=== PATIENT | female | born 1975 ===

== ENCOUNTER 2024-09-25 14:44 | Outpatient (AMB) | payer OTHER, SELFPAY ==
--- NOTE | 2024-09-25 14:58 | AM.OFFWIN_ITS ---
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 - She is here from the [facility] and does not have a PCP. She has been out of her medications and needs refills. - She is assigned to a primary care prov Donna botello, with an initial appointment moved up to November 20. - The patient requires refills for three specific medications in addition to Motrin, with fulfillment requested at the [facility] in [facility]. - She denies CP, SOB, abd pain, n/v/d, H A, visual changes, or leg edema. Physical Exam General: Cooperative, healthy appearing, comfortable, no acute distress and well developed Orientation: Patient oriented x3 Eyes: Appearance normal, both eyes and all related structures Neck: Normal visual inspection and Yes full ROM Respiratory: Normal respiratory effort and able to speak in complete sentences. Clear to auscultation bilaterally Cardiovascular: Regular rate and rhythm. Normal S1 and S2 Neuro: Patient oriented x3 Extremities: Normal to inspection Patient was informed and verbally consented to the use of an ambient scribe for clinic note documentation during this visit. [facility] Social History Patient Tobacco Use Status: Never used Tobacco Review of Systems Const All systems reviewed & are unremarkable except as noted in HPI and below Physical Exam Vital Signs: Last Vital Signs Temp 97.8 F 09/25/24 14:59 Pulse 83 09/25/24 14:59 BP 120/74 09/25/24 14:59 Pulse Ox 97 09/25/24 14:59 Oxygen Delivery Method Room Air 09/25/24 14:59 BMI result Body Mass Index 34.2 Assessment & Plan Assessment & Plan (1) Diabetes: Code(s): E11.9 - Type 2 diabetes mellitus without complications Qualifiers: Diabetes mellitus type: type 2 Diabetes mellitus nursing home insulin use: without nursing home use Diabetes mellitus complication status: without complication Qualified Code(s): E11.9 - Type 2 diabetes mellitus without complications (2) HTN (hypertension): Code(s): I10 - Essential (primary) hypertension Qualifiers: Hypertension type: primary hypertension Qualified Code(s): I10 - Essential (primary) hypertension (3) Medication refill: Code(s): Z76.0 - Encounter for issue of repeat prescription Plan Most likely med refills for her chronic medical conditions Plan - Refill medications at the [facility] on [facility] in [place]. - One medication is unfamiliar from , will give her Metformin 500 mg and losartan-HCTZ - Schedule and ensure attendance for the November 20 follow-up with the assigned primary care provider - Will order labs today - Has f/u in November Orders: Orders Complete Blood Count Auto Diff Today E11.9 - Type 2 diabetes mellitus without complications Comprehensive Met. Panel Today E11.9 - Type 2 diabetes mellitus without complications Hemoglobin A1c Today E11.9 - Type 2 diabetes mellitus without complications Medications: New losartan-hydrochlorothiazide 100-25 mg 1 tab PO QAM 90 days 90 tabs 0RF blood pressure metformin 1,000 mg PO ONCE 90 days 90 tabs 0RF diabetes mellitus type 2 Coding Level of Care Code Est Pt Level 4 (38201) Diagnoses Type 2 diabetes mellitus without complication, without long-term current use of insulin E11.9 Diabetes mellitus type: type 2 Diabetes mellitus nursing home insulin use: without adjunct faculty for medical terminology use Diabetes mellitus complication status: without complication Primary hypertension I10 Hypertension type: primary hypertension Medication refill Z76.0
[2024-09-25 14:59] VITALS: BP 120/74; PULSE 83; TEMP 36.6; O2SAT 97; BMI 34.2
== END 2024-09-25 15:47 | disposition home or self-care (01) ==
PROVIDERS: Visit Provider Physician Assistant Medical
DX: E11.9 Type 2 diabetes mellitus without complications (principal); I10 Essential (primary) hypertension; Z76.0 Encounter for issue of repeat prescription

== ENCOUNTER → 2024-09-25 14:44 | Outpatient (BNVA) | payer OTHER, SELFPAY | PROVIDERS: Visit Provider Physician Assistant Medical | DX: E11.9 Type 2 diabetes mellitus without complications (principal); I10 Essential (primary) hypertension; Z76.0 Encounter for issue of repeat prescription; Z79.899 Other long term (current) drug therapy | CPT/HCPCS: 99212 ==

== ENCOUNTER 2024-09-26 15:11 | Outpatient (REF) | payer OTHER, SELFPAY ==
[2024-09-26 16:06] LABS: MANUAL DIFF FLAG NO
[2024-09-26 16:18] LABS: Basophils Absolute Auto 0.1 X10*3/uL (0.0-0.2); Basophils Percent Auto 0.6 % (0-2); Eosinophils Absolute Auto 0.1 X10*3/uL (0.0-0.4); Eosinophils Percent Auto 1.4 % (0-4); Hematocrit 36.5 % (37.0-47.0); Hemoglobin 12.2 g/dl (12.0-16.0); Imm Gran Abs Auto 0.02 X10*3/uL (0.00-0.03); Imm Gran Pct Auto 0.2 % (0.0-0.4); Lymphocytes Absolute Auto 3.1 X10*3/uL (1.2-4.9); Lymphocytes Percent Auto 36.8 % (20-40); Mean Corpuscular HGB Conc 33.4 g/dl (31.0-35.0); Mean Corpuscular Hemoglobin 27.4 pg (27.0-33.0); Mean Platelet Volume 10.5 fL (9.4-12.3); Monocytes Absolute Auto 0.5 X10*3/uL (0.1-1.2); Monocytes Percent Auto 5.8 % (2-11); Neutrophils Absolute Auto 4.6 x10*3/uL (2.0-8.3); Neutrophils Percent Auto 55.2 % (45-73); Platelet Count 281 X10*3/uL (160-400); Red Blood Count 4.45 X10*6/uL (4.20-5.50); Red Cell Distribution Width 13.8 % (11.0-16.0); White Blood Count 8.4 X10*3/uL (4.8-10.8)
[2024-09-26 16:26] LABS: Estimated Average Glucose 183 mg/dL; Total Hemoglobin (HGBA1C) 3249.0355 umol/L
[2024-09-26 16:51] LABS: Alanine Aminotransferase 20 U/L (0-31); Albumin Level 4.5 g/dL (3.5-5.0); Alkaline Phosphatase 56 U/L (39-117); Anion Gap 12 (12-20); Aspartate Amino Transferase 19 U/L (5-31); Bilirubin Total 0.2 mg/dL (0.0-1.0); Blood Urea Nitrogen 14 mg/dL (9-16); Calcium 9.5 mg/dL (8.4-10.2); Carbon Dioxide 28 mmol/L (22-29); Chloride 101 mmol/L (96-108); Estimated Glomerular Filt Rate > 60; Glucose Random 168 mg/dL (60-115); Potassium 3.8 mmol/L (3.3-5.1); Sodium 137 mmol/L (135-145); Total Protein 7.1 g/dL (6.5-8.0)
== END 2024-09-26 15:12 | disposition home or self-care (01) ==
LOC: HO.HMGCLDS 15:11
PROVIDERS: Visit Provider Physician Assistant Medical
DX: E11.9 Type 2 diabetes mellitus without complications (principal)
CPT/HCPCS: 36415; 80053; 83036; 85025

== ENCOUNTER 2024-11-20 16:03 | Outpatient (AMB) | payer OTHER, SELFPAY ==
--- NOTE | 2024-11-20 16:06 | A.OFFPC_ITS ---
Vital Signs 11/20/24 16:07 Height 5 ft 5 in Weight 205 lb 6 oz BMI 34.2 BP 140/74 H Blood Pressure Location Lt brachial Position Sitting Pulse 78 Temp Source Temporal Artery Scan Pulse Oximetry (%) 97 Oxygen Delivery Method Room Air Intake Visit Reasons: establish care Terminologist Required: No Accompanied by: Daughter Allergies No Known Allergies Allergy (Verified 11/20/24 16:19) Medication List - Last Reconciled 11/20/24 by Donna Lira PA-C losartan-hydrochlorothiazide 100-25 mg 1 tab PO QAM 90 days metformin 1,000 mg PO ONCE 90 days phentermine 37.5 mg PO DAILY Tobacco use date assessed: 11/20/24 Dental Screening Dental Screen Date: 11/20/24 Did you have a dental visit in the last 12 months?: No Did you have a dental problem in the last 6 months where you did not have access to dental care?: No Was dental information given to patient?: No HPI establish care HPI Details 49-year-old female with past medical his tory of diabetes mellitus and hypertension coming to the office for the 1st time. She has previously being seen in [place] where she was on losartan-hydrochlorothiazide and metformin. She is also started on phentermine for weight loss at that time. Patient's history provided interpretation for the duration of this visit. Formal interpretation was declined today Presenting with hypertension and diabetes mellitus management. Hypertension previously drinking [place] typically has normal values at home. Diabetes mellitus managed with metformin 1000 mg twice daily however A1c is at 8.0%. Reports leg swelling and circulation is use without previous prior vascular surgeries however she was on a medication called Flomacor while in the [facility]. Accompanying the chronic leg swelling she does also reports symptoms of neuropathy. She also mentioned upper back pain that has been present for several years and worsens with prolonged standing and is relieved by lying down. Denies any radiation of the pain. She does also mentioned having chest discomfort previously in [facility] and that has resolved since moving to the [facility]. She does exercise routinely and denies any chest pain with exertion. [facility] Surgical History (Updated 11/20/24 @ 16:28 by Donna Lira PA-C) H/O: hemorrhoidectomy H/O section Social History Patient Tobacco Use Status: Never used Tobacco Female Reproductive History Menstrual History of abnormal pap smear: Yes History of abnormal mammogram: Yes Questionnaire PHQ-9 Over the last 2 weeks, how often have you been bothered by any of the following problems? 1. Little interest or pleasure in doing things: not at all 2. Feeling down, depressed, or hopeless: not at all 3. Trouble falling or staying asleep, or sleeping too much: more than half the days 4. Feeling tired or having little energy: not at all 5. Poor appetite or overeating: not at all 6. Feeling bad about yourself - or that you are a failure or have let yourself or your family down: not at all 7. Trouble concentrating on things, such as reading the newspaper or watching television: not at all 8. Moving or speaking so slowly that other people could have noticed. Or the opposite - being so fidgety or restless that you have been moving around a lot more than usual: not at all 9. Thoughts that you would be better off or of hurting yourself in some way: not at all Total score: 2 Depression Screening Interpretation: Negative Depression Screening Done: Yes 47579 - PHQ-9 Billing: Yes Source: Developed by Drs. Nir Coon, Cinthia Goodman, Thuan Bello and colleagues, with an educational laure from [employer]. Thrive Questionnaire Date Thrive assessed: 11/20/24 I am a: Patient What is your living situation today?: I have a steady place to live Within the past 12 months, did the food you bought not last and you didn't have the money to get more?: Never true Within the past 12 months, did you worry whether your food would run out before you got money to buy more?: Never true Do you have trouble paying for medicines?: No Do you have trouble getting transportation to medical appointments?: No Do you have trouble paying your heating and electricity bill?: No Do you have trouble taking care of your child, family member or friend?: No Do you have trouble with day-to-day activities such as bathing, preparing meals, shopping, managing finances, etc.?: No Are you currently unemployed and looking for a job?: No Are you interested in more education?: Yes Please select the resources that you would like help with: None Currently or been in a relationship where the following occur: No concerns reported THRIVE Score: 0 AUDIT C Alcohol Use Questionnaire (AUDIT-C) 1. How often do you have a drink containing alcohol?: Never Total Score: 0 DINESH-7 AMB Questionnaire DINESH-7 Date DINESH - 7 assessed: 11/20/24 Feeling nervous, anxious, or on edge: 1 = Several days Not being able to stop or control worryin = Several days Worrying too much about different things: 1 = Several days Trouble relaxin = Several days Being so restless that it is hard to sit still: 1 = Several days Becoming easily annoyed or irritable: 0 = Not at all Feeling afraid as if something awful might happen: 1 = Several days Total DINESH-7 score (0-4 normal; 5-9 mild; 10-14 moderate; 15-21 severe): 6 Source: Developed by Drs. Nir Coon, Cinthia Goodman, Thuan Bello and colleagues, with an educational laure from [employer]. DINESH-7 Assessment Billing DINESH-7 Assessment Tool: DINESH-7 Assessment 71790 Review of Systems Const Denies body aches, Denies chills, Denies fever(s), Denies headache(s) and Denies poor appetite Eyes Reports no additional complaints ENT Denies dysphagia, Denies dizziness, Denies headache(s) and Denies odynophagia Card Details: One episode of chest discomfort 3 days ago Denies chest pain, Denies syncope, Denies edema, Denies irregular heart rhythm, Denies lightheadedness and Denies dyspnea Resp Denies cough and Denies dyspnea GI Denies abdominal pain, Denies constipation, Denies dysphagia, Denies diarrhea, Denies nausea, Denies odynophagia and Denies vomiting Reports no additional complaints Musc Reports no additional complaints and Denies abnormal gait Skin/Breast Reports system reviewed and no additional complaints, except as documented Neuro Denies abnormal gait, Denies dizziness, Denies syncope and Denies headache(s) Psych Reports no additional complaints Physical exam (Primary Care) Vital Signs: Last Vital Signs Pulse 78 11/20/24 16:07 BP 140/74 H 11/20/24 16:07 Pulse Ox 97 11/20/24 16:07 Oxygen Delivery Method Room Air 11/20/24 16:07 BMI result Body Mass Index 34.2 Tobacco/Smoking Status: Tobacco use Status Tobacco use date assessed 11/20/24 11/20/24 16:08 Patient Tobacco Use Status Never used Tobacco 11/20/24 16:08 PHQ-9: PHQ-9 Score PHQ-9: Total score 2 11/21/24 07:51 Depression Screening Interpretation: Negative Thrive Assessment: Date of Thrive Assessment Date Thrive assessed 11/20/24 11/20/24 16:08 Currently or been in a relationship where the following occur: No concerns reported Const General: cooperative, healthy appearing, comfortable and no acute distress Orientation/consciousness: patient oriented x3 HENMT Head: Yes normocephalic Ears: hearing grossly normal bilaterally General nose exam: Normal external nose present Eyes General: appearance normal, both eyes and all related structures Conjunctivae: conjunctivae normal Neck Neck: Yes full ROM and Yes no lymphadenopathy Resp Effort & Inspection: normal respiratory effort Auscultation: clear to auscultation bilaterally, no crackles, no rales, no rhonchi and no wheezes Cardio Rate: regular rate Rhythm: regular rhythm Skin General skin exam: no rashes or lesions noted Neuro General: patient oriented x3 Gait exam (Neuro): Normal gait present Extrem Other: Little to no edema in bilateral lower extremities. No redness, warmth, swelling or tenderness. Intact strength, sensation, pulses in bilateral lower extremities General: Yes normal to inspection, Yes full ROM and No edema Psych Affect: normal affect Attitude: cooperative Insight: Good insight present (Psych) Judgement: Good judgement present (Psych) Coding Level of Care Code New Pt Level 4 (77229) Diagnoses Obesity (BMI 30.0-34.9) E66.811 Primary hypertension I10 Hypertension type: primary hypertension Diabetes mellitus E11.9 Anxiety F41.9 Peripheral vascular disease I73.9 Upper back pain M54.9 Chest discomfort R07.89 Additional Codes DINESH-7 Assessment Billing - DINESH-7 Assessment Tool: DINESH-7 Assessment 08721 ([id number]) PHQ-9 - 42071 - PHQ-9 Billing: Yes ([id number]) Assessment & Plan Assessment & Plan (1) Obesity (BMI 30.0-34.9): Code(s): E66.811 - Obesity, class 1 Category: Medical Plan: Healthy diet and regular exercise is encouraged. Plan to start on Mounjaro for management of diabetes with should also help with weight loss (2) Hypertension: Code(s): I10 - Essential (primary) hypertension Category: Medical Qualifiers: Hypertension type: primary hypertension Qualified Code(s): I10 - Essential (primary) hypertension Plan: Continue on current blood pressure medication. Avoid salt intake and encourage healthy diet and regular exercise. Blood pressure mildly elevated in the office today 140/74. Recommend monitoring blood pressure at home with log and bring this in the next visit. If blood pressure should exceed 140/90 please reach out to the office prior to next visit (3) Diabetes mellitus: Code(s): E11.9 - Type 2 diabetes mellitus without complications Category: Medical Plan: Decrease the amount of carbohydrates such as pasta, bread, rice, and potatoes and limit the amount of sweets. Although fruits are generally healthy they should be eaten in moderation as they are still high in sugar. Hemoglobin A1c goal of less than 7%. Last A1c 8.0% plan to continue on metformin 1000 mg twice daily and add Mounjaro to medication regimen. She has poor compliance to oral medications and typically forgets to take her doses. Given this information once weekly dosing should promote medication adherence (4) Anxiety: Code(s): F41.9 - Anxiety disorder, unspecified Category: Medical Plan: Patient has mild anxiety and declines counseling or treatment at this time (5) Peripheral vascular disease: Comment: Dx in Code(s): I73.9 - Peripheral vascular disease, unspecified Category: Medical Plan: Diagnosed with peripheral vascular disease in the [place] and previously on Flormacor for this concern. Referral was placed to vascular surgery today. On exam there is little to no swelling however she states typically will have worsening swelling throughout the day (6) Upper back pain: Code(s): M54.9 - Dorsalgia, unspecified Category: Medical Plan: Mild upper back pain recommend weight loss, Tylenol and ibuprofen. Referral can be placed to physical therapy at patient request. (7) Chest discomfort: Code(s): R07.89 - Other chest pain Category: Medical Plan: Patient reporting chest discomfort while in the [place] several years ago that resolved with weight loss. She did have 1 episode of chest discomfort 3 days ago that resolved spontaneously. Denies any shortness of breath at that time and she believes it to be muscular. Advised patient to continue to monitor symptoms at this time and I did review of the red flag symptoms and when to present for re-evaluation. EKG ordered as well. Plan The management plan for diabetes involves initiating Mounjaro at the lowest dose, with the possibility of discontinuing metformin if effective. Home blood pressure monitoring is advised, with a threshold of 140/90 mmHg for reporting. A vascular surgeon referral is planned to evaluate peripheral vascular disease, and a mammogram referral is included for preventative care. This note was constructed using voice recognition software. While every effort has been made to ensure accuracy and mixer operator helper hot metal, still areas may have been included sometimes these areas may affect the content or meeting of the given sy mptoms. Total time spent caring for the patient today was 45 minutes. This includes time spent before the visit reviewing the chart, time spent during the visit, and time spent after the visit and documentation. Patient was informed and verbally consented to the use of an ambient scribe for clinic note documentation during this visit. Orders: Orders MM tomosynthesis screening BI 11/20/24 Z12.31 - Encounter for screening mammogram for malignant neoplasm of breast Lipid Panel 11/20/24 E11.9 - Type 2 diabetes mellitus without complications, Z13.220 - Encounter for screening for lipoid disorders TSH reflex Free T4 11/20/24 Z13.29 - Encounter for screening for other suspected endocrine disorder Free T4 (Free Thyroxine) 11/20/24 Z13.29 - Encounter for screening for other suspected endocrine disorder Vitamin B12 and Folate 11/20/24 Z13.21 - Encounter for screening for nutritional disorder Vitamin D 25-OH Total 11/20/24 Z13.21 - Encounter for screening for nutritional disorder Microalbumin, Random (w Creat) 11/20/24 E11.9 - Type 2 diabetes mellitus without complications ECG 12 lead EKG 11/20/24 R07.89 - Other chest pain Referrals MARKETING INFORMATION ANALYST Referral R87.629 - Unspecified abnormal cytological findings in specimens from vagina, Z12.4 - Encounter for screening for malignant neoplasm of cervix Vascular Surgery Referral I73.9 - Peripheral vascular disease, unspecified Medications: New blood pressure test kit-large As directed; to check blood pressure 1 ea 0RF I10 - Essential (primary) hypertension lancets (FreeStyle Lancets) As directed to check blood sugar daily 100 ea 0RF E11.9 - Type 2 diabetes mellitus without complications tirzepatide (Mounjaro) for 4 weeks 2.5 mg (0.5 mL) subcut QWEEK 2 mL 0RF E11.9 - Type 2 diabetes mellitus without complications, E66.811 - Obesity, class 1 blood sugar diagnostic (FreeStyle Lite Strips) As directed to check blood sugar daily 50 ea 1RF E11.9 - Type 2 diabetes mellitus without complications blood-glucose meter (FreeStyle Ava Lite kit) As directed to check blood sugar daily 1 ea 0RF E11.9 - Type 2 diabetes mellitus without complications Changed From metformin 1,000 mg PO ONCE 90 days 90 tabs 1RF diabetes mellitus type 2 To metformin 1,000 mg PO BID 180 tabs 1RF diabetes mellitus type 2 90 days Refilled metformin 1,000 mg PO ONCE 90 days 90 tabs 1RF diabetes mellitus type 2 losartan-hydrochlorothiazide 100-25 mg 1 tab PO QAM 90 tabs 1RF blood pressure 90 days
[2024-11-20 16:07] VITALS: BP 140/74; PULSE 78; O2SAT 97; BMI 34.2
== END 2024-11-20 16:58 | disposition home or self-care (01) ==
DX: E11.42 Type 2 diabetes mellitus with diabetic polyneuropathy (principal); E66.811 Obesity, class 1; Z68.34 Body mass index [BMI] 34.0-34.9, adult; I10 Essential (primary) hypertension; F41.9 Anxiety disorder, unspecified; I73.9 Peripheral vascular disease, unspecified; M54.9 Dorsalgia, unspecified; R07.89 Other chest pain

== ENCOUNTER → 2024-11-20 16:03 | Outpatient (BNVA) | payer OTHER, SELFPAY | DX: E66.811 Obesity, class 1 (principal); E11.51 Type 2 diabetes mellitus with diabetic peripheral angiopathy without gangrene; I10 Essential (primary) hypertension; F41.9 Anxiety disorder, unspecified; M54.9 Dorsalgia, unspecified; R07.89 Other chest pain; R87.629 Unspecified abnormal cytological findings in specimens from vagina; Z79.84 Long term (current) use of oral hypoglycemic drugs; Z68.34 Body mass index [BMI] 34.0-34.9, adult | CPT/HCPCS: 96127; 99202 ==

== ENCOUNTER 2025-01-09 14:38 | Outpatient (AMB) | payer OTHER, SELFPAY ==
[2025-01-09 14:40] VITALS: BMI 34.1
--- NOTE | 2025-01-09 14:40 | MHC.OFFVIS ---
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 Bilateral LE swelling and discoloration, Left worse than Right. Pain, swelling, numbness and fall asleep. Works on her feet. Telegraphic Typewriter Installer Required: No Accompanied by: Self / Same As Patient Allergies No Known Allergies Allergy (Verified 01/09/25 14:44) HPI HPI SPA MANAGER/ESTHETICIAN/ PCP referral for PVD: Details: The patient is a 49-year-old female presenting with leg numbness and swelling. She reports numbness and swelling in her legs, with the left leg more affected than the right, persisting for 8 to 9 years. Pain occurs with prolonged walking. She denies smoking and diabetes, and has been using medication from the [place], which she finds helpful. Patient denies any previous venous surgery or injections. Patient denies any history of DVT/ PE. Patient denies any history of phlebitis. Trial of compression includes - prescription compression given to her in [place] They now present for vascular evaluation regarding their varicose veins. [facility] Surgical History H/O: hemorrhoidectomy H/O section Social History Patient Tobacco Use Status: Never used Tobacco Review of Systems Const Reports as per HPI ENT Reports no additional complaints Card Denies chest pain, Denies chest pain at rest and Denies chest pain with activity Resp Denies chest congestion and Denies cough GI Reports no additional complaints Musc Details: pain over varicosities, aching of lower extremities, swelling, cramping, heaviness and tiredness, itching Denies abnormal gait Skin/Breast Reports pruritus and Denies wounds Neuro Reports no additional complaints and Denies abnormal gait Psych Denies no additional complaints Physical Exam Vital Signs: BMI result Body Mass Index 34.1 Const General: cooperative, healthy appearing and comfortable Orientation/consciousness: oriented to person, oriented to place and oriented to time Neck Carotids: no bruits Chest Chest palpation & inspection: normal inspection of the chest and normal palpation of entire chest wall Resp Effort & Inspection: normal respiratory effort and able to speak in complete sentences Cardio Rate: regular rate Heart sounds: S1 normal heart sound present and S2 normal heart sound present Peripheral pulses: Peripheral pulses 2+ throughout GI Inspection: Yes normal to inspection Skin Other: +2 edema, large rope-like varicosities greater than 4 mm CEAP Classification C4 - skin color changes Ep - Etiology Primary As - superficial veins P - reflux General skin exam: dry skin Neuro General: oriented to person, oriented to place and oriented to time Extrem Right lower extremity: full ROM, normal capillary refill and edema Left lower extremity: full ROM, normal capillary refill and edema Psych Mental Status: mental status grossly normal Assessment & Plan Assessment & Plan (1) Varicose veins of left lower extremity with inflammation: Code(s): I83.12 - Varicose veins of left lower extremity with inflammation Category: Medical Plan: In short, the patient has evidence of venous insufficiency. I have discussed the pathophysiology with the patient. In addition I have provided informational material regarding venous disease to the patient. We have discussed conservative measures including compression, elevation, and exercise. I have also provided a handout regarding appropriate use of compression stockings and where to purchase good compression stockings as well. I have taken the liberty of ordering venous insufficiency testing with the patient. They will follow up with me after testing. The patient had an opportunity to ask questions regarding the treatment plan. All questions were answered. Imaging studies, laboratory studies and physical exam results were discussed and reviewed in detail. No major barriers to understanding were identified. The patient expressed understanding and agreement with the above treatment plan. The patient is aware they should contact our office by phone for worsening of the current condition or the appearance of new symptoms. Thank you for allowing me to participate in the vascular care of this patient. If you have any questions or concerns regarding the treatment for the above condition please do not hesitate to contact me. The office telephone contact is [phone]. This note is constructed using voice recognition software. While every effort has been made to ensure accuracy, director personal errors may have been included. Thank you for allowing me to participate in the care of your patient. Yours sincerely, Missael Bermudez MD, FACS, R.P.V.I. Orders: Orders US venous duplex LE BI Today I83.12 - Varicose veins of left lower extremity with inflammation Coding Level of Care Code New Pt Level 4 (81940) Diagnoses Varicose veins of left lower extremity with inflammation I83.12
== END 2025-01-09 15:08 | disposition home or self-care (01) ==
LOC: HO.HVS 14:39
PROVIDERS: Visit Provider Surgery Vascular Surgery
DX: I83.12 Varicose veins of left lower extremity with inflammation (principal)
CPT/HCPCS: 99204

== ENCOUNTER → 2025-01-09 14:38 | Outpatient (BNVA) | payer OTHER, SELFPAY | PROVIDERS: Visit Provider Surgery Vascular Surgery | DX: I83.12 Varicose veins of left lower extremity with inflammation (principal) | CPT/HCPCS: 99202 ==

== ENCOUNTER 2025-02-07 14:47 | Outpatient (REF) | payer OTHER, SELFPAY ==
--- NOTE | ~2025-02-07 | MM_ITS ---
EXAMINATION: MM SCREENING DIGITAL BREAST TOMOSYNTHESIS, BILATERAL CLINICAL INFORMATION: Screening. Asymptomatic. COMPARISON: Mammography: Baseline. TECHNIQUE: Digital breast mammography with tomosynthesis is performed in both the craniocaudal and mediolateral oblique views along with computer-aided detection (CAD). FINDINGS: There are scattered areas of fibroglandular density. There are no significant masses, abnormal calcifications, or other abnormalities. MM/MM tomosynthesis screening BI IMPRESSION: No mammographic evidence of malignancy. ASSESSMENT: BI-RADS Category 1: Negative RECOMMENDATION: Routine annual mammography screening. 1 year F/U This examination should not preclude the clinical evaluation of a suspicious palpable abnormality. This patient's information was entered into a reminder system with a target due date for their next mammogram. Electronically signed by: Zohra Winn DO 02/11/2025 09:59 AM EDT
== END 2025-02-07 14:48 | disposition home or self-care (01) ==
LOC: HO.MAMMO 14:47
DX: Z12.31 Encounter for screening mammogram for malignant neoplasm of breast (principal)
CPT/HCPCS: 77063; 77067

== ENCOUNTER → 2025-02-07 15:00 | Outpatient (BNV) | payer OTHER, SELFPAY | PROVIDERS: Visit Provider Internal Medicine | DX: Z12.31 Encounter for screening mammogram for malignant neoplasm of breast (principal) | CPT/HCPCS: 77063; 77067 ==

== ENCOUNTER 2025-02-12 13:18 | Outpatient (REF) | payer OTHER, SELFPAY ==
--- NOTE | ~2025-02-12 | US_ITS ---
EXAMINATION: US LOWER EXTREMITY VENOUS (REFLUX EXAM), BILATERAL CLINICAL INFORMATION: I83.12 - Varicose veins of left lower extremity with inflammation COMPARISON: None. TECHNIQUE: Color flow triplex imaging and compression Doppler was performed to evaluate both the deep and the superficial systems bilaterally. To evaluate the superficial system, the examination was performed in the upright position. Color-flow Doppler ultrasound and compression ultrasound were utilized. In addition, maneuvers were utilized to demonstrate reflux. FINDINGS: 1. DEEP VENOUS ULTRASOUND OF THE RIGHT LOWER EXTREMITY: Common Femoral Vein: Compressible, normal respiratory variation and augmented flow. Femoral Vein: Compressible, normal color flow and augmentation. Popliteal Vein: Compressible, normal augmentation. Deep Reflux: There is no evidence of reflux in the deep system in either the common femoral vein, superficial femoral or the popliteal vein. There is no evidence of a Walls's cyst. 2. SUPERFICIAL ULTRASOUND WITH DOPPLER OF RIGHT LOWER EXTREMITY: GREAT SAPHENOUS VEIN: Saphenofemoral Junction: 0.8 cm; Reflux: Greater than 33445 ms Proximal Thigh: 0.4 cm; Reflux: 0 ms Mid Thigh: 0.3 cm; Reflux: Greater than 2592 ms Distal Thigh: 0.3 cm; Reflux: Greater than 2532 ms At Knee: 0.3 cm; Reflux: 972 ms Proximal Calf: 0.2 cm; Reflux: 908 ms Mid Calf: 0.2 cm; Reflux: 0 ms Distal Calf: 0.3 cm; Reflux: 0 ms DUPLICATED MEDIAL GREAT SAPHENOUS VEIN: Diameter: None imaged Reflux: NA DUPLICATED LATERAL GREAT SAPHENOUS VEIN: Diameter: 0.2-0.3 cm Reflux: NA SMALL SAPHENOUS VEIN: Saphenopopliteal Junction: 0.1 cm; Reflux: 0 ms Proximal: 0.2 cm; Reflux: 0 ms Distal: 0.2 cm; Reflux: 0 ms VEIN OF GIACOMINI: Size: NA Reflux: NA PERFORATORS: Location: Proximal and mid calf Size: There are 0.2 to 0.3 cm Reflux: NA VARICOSITIES: 3 mm varicosity in the lateral mid thigh without reflux. 4 mm varicosity in the distal thigh with greater than 2496 ms reflux. 3 mm varicosity in the proximal calf with no reflux. 3. DEEP VENOUS ULTRASOUND OF THE LEFT LOWER EXTREMITY: Common Femoral Vein: Compressible, normal respiratory variation and augmented flow. Femoral Vein: Compressible, normal color flow and augmentation. Popliteal Vein: Compressible, normal augmentation. Deep Reflux: There is no evidence of reflux in the deep system in either the common femoral vein, superficial femoral or the popliteal vein. There is no evidence of a Walls's cyst. 4. SUPERFICIAL ULTRASOUND WITH DOPPLER OF LEFT LOWER EXTREMITY: GREAT SAPHENOUS VEIN: Saphenofemoral Junction: 10 cm; Reflux: 0 ms Proximal Thigh: 0.4 cm; Reflux: 0 ms Mid Thigh: 0.4 cm; Reflux: 0 ms Distal Thigh: 0.4 cm; Reflux: 0 ms At Knee: 0.3 cm; Reflux: 0 ms Proximal Calf: 0.2 cm; Reflux: 0 ms Mid Calf: 0.3 cm; Reflux: 0 ms Distal Calf: 0.3 cm; Reflux: 0 ms DUPLICATED MEDIAL GREAT SAPHENOUS VEIN: Diameter: None imaged Reflux: NA DUPLICATED LATERAL GREAT SAPHENOUS VEIN: Diameter: None imaged. Reflux: NA SMALL SAPHENOUS VEIN: Saphenopopliteal Junction: 0.2 cm; Reflux: 0 ms Proximal: 0.3 cm; Reflux: 0 ms Distal: 0.2 cm; Reflux: 0 ms VEIN OF GIACOMINI: Size: NA Reflux: NA PERFORATORS: Location: At the knee and proximal calf Size: 0.2 cm Reflux: NA VARICOSITIES: Location: Proximal calf Size: 0.4 cm Reflux: NA US/US venous duplex LE BI IMPRESSION: Right: No evidence of DVT or deep venous reflux. Reflux in the right greater saphenous vein at the saphenofemoral junction, mid thigh and above the knee measuring maximum greater than 2.6 seconds. Varicosity in the distal thigh measuring 4 mm with greater than 2.5 second reflux. Left: No evidence of DVT or deep venous reflux. No left greater or lesser saphenous vein reflux. Electronically signed by: Elva Santos MD 02/12/2025 02:39 PM EDT
--- NOTE | 2025-02-12 14:37 | ECG_ITS ---
Test Reason : CHEST PAIN Blood Pressure : */* mmHG Vent. Rate : 78 BPM Atrial Rate : 78 BPM P-R Int : 146 ms QRS Dur : 92 ms QT Int : 372 ms P-R-T Axes : 34 -2 23 degrees QTcB Int : 424 ms Normal sinus rhythm Cannot rule out Anterior infarct , age undetermined Abnormal ECG No previous ECGs available Referred By: Donna Lira Electronically Signed By: TEO DOW
== END 2025-02-12 13:19 | disposition home or self-care (01) ==
LOC: HO.US 13:18
PROVIDERS: Visit Provider Surgery Vascular Surgery
DX: I83.12 Varicose veins of left lower extremity with inflammation (principal); R07.89 Other chest pain
CPT/HCPCS: 93005; 93970

== ENCOUNTER → 2025-02-12 13:21 | Outpatient (BNV) | payer OTHER, SELFPAY | PROVIDERS: Visit Provider Radiology Diagnostic Radiology | DX: I83.12 Varicose veins of left lower extremity with inflammation (principal) | CPT/HCPCS: 93970 ==

== ENCOUNTER → 2025-02-12 14:37 | Outpatient (BNV) | payer OTHER, SELFPAY | PROVIDERS: Visit Provider Internal Medicine | DX: R94.31 Abnormal electrocardiogram [ECG] [EKG] (principal); R07.9 Chest pain, unspecified | CPT/HCPCS: 93010 ==

== ENCOUNTER 2025-02-22 08:56 | Outpatient (REF) | payer OTHER, SELFPAY ==
[2025-02-22 11:45] LABS: Cholesterol 205 mg/dL (<200); HDL Cholesterol 53 mg/dL (>40); Triglycerides 74 mg/dL (<150)
[2025-02-22 12:06] LABS: Folate 10.2 ng/mL (> or = 4.0); Free T4 (Free Thyroxine) 1.10 ng/dL (0.71-1.85); Vitamin B12 785 pg/mL (200-900)
== END 2025-02-22 08:57 | disposition home or self-care (01) ==
LOC: HO.LAB 08:56
DX: Z13.220 Encounter for screening for lipoid disorders (principal); Z13.29 Encounter for screening for other suspected endocrine disorder; Z13.21 Encounter for screening for nutritional disorder; E11.9 Type 2 diabetes mellitus without complications
CPT/HCPCS: 36415; 80061; 82043; 82306; 82570; 82607; 82746; 84439; 84443

== ENCOUNTER 2025-02-28 08:55 | Outpatient (AMB) | payer OTHER, SELFPAY ==
[2025-02-28 09:00] VITALS: BP 110/70; PULSE 78; TEMP 36.3; O2SAT 98
--- NOTE | 2025-02-28 09:00 | A.OFFPC_ITS ---
Vital Signs 02/28/25 09:00 Height 5 ft 5 in BP 110/70 Blood Pressure Location Lt brachial Position Sitting Pulse 78 Pulse Source Pulse Oximeter Temp 97.3 F Temp Source Temporal Artery Scan Pulse Oximetry (%) 98 Oxygen Delivery Method Room Air Intake Visit Reasons: follow up/DM reschedule Elevator Technician Required: No Accompanied by: Daughter Allergies No Known Allergies Allergy (Verified 02/28/25 09:00) Medication List - Last Reconciled 02/28/25 by Donna Lira PA-C blood pressure test kit-large As directed; to check blood pressure blood sugar diagnostic (FreeStyle Lite Strips) DIRECTED TO CHECK BLOOD SUGAR DAILY blood-glucose meter (FreeStyle [place] Lite kit) As directed to check blood sugar daily empagliflozin (Jardiance) 10 mg PO DAILY lancets (FreeStyle Lancets) As directed to check blood sugar daily losartan-hydrochlorothiazide 100-25 mg 1 tab PO QAM 90 days metformin 1,000 mg PO BID 90 days Tobacco use date assessed: 11/20/24 Dental Screening Dental Screen Date: 11/20/24 Did you have a dental visit in the last 12 months?: No Did you have a dental problem in the last 6 months where you did not have access to dental care?: No Was dental information given to patient?: No HPI follow up/DM reschedule HPI Details 49 year old female with past medical his tory of DM, hypertension, anxiety, PVD last seen 11/2024 coming in for follow up. In review of the notes, patient was seen by vascular 12/2024 recommended venous insufficiency testing, compression stockings and leg elevation. Interpretation was provided by patient's family member and formal interpretation was declined today. Presenting for follow-up on chronic conditions and a new complaint of dry mouth with brown saliva. The patient reports experiencing dry mouth and brown saliva at night and upon waking in the morning, which has been present for a long time and resolves after brushing her teeth. Her blood glucose control is suboptimal, with a recent A1c of 8.1, which is an increase from her previous value of 8.0. The patient reports a history of an episode of chest pain while in the [place] and another episode last week, which she describes as muscular and occurring at rest. She denies chest pain with exertion or walking. An EKG performed recently was interpreted as abnormal, suggesting a possible previous anterior heart attack. She has started going to the gym and is interested in restarting phentermine, a weight loss pill she took previously in [place]. PENDING SALE TO [facility] Surgical History H/O: hemorrhoidectomy H/O section Social History Housing: House Patient Tobacco Use Status: Never used Tobacco e-Cigarette/Vaping Use: Never Used Cognitive needs: No Hearing needs: No Vision needs: Yes Questionnaire PHQ-9 Over the last 2 weeks, how often have you been bothered by any of the following problems? 1. Little interest or pleasure in doing things: not at all 2. Feeling down, depressed, or hopeless: not at all 3. Trouble falling or staying asleep, or sleeping too much: more than half the days 4. Feeling tired or having little energy: not at all 5. Poor appetite or overeating: not at all 6. Feeling bad about yourself - or that you are a failure or have let yourself or your family down: not at all 7. Trouble concentrating on things, such as reading the newspaper or watching television: not at all 8. Moving or speaking so slowly that other people could have noticed. Or the opposite - being so fidgety or restless that you have been moving around a lot more than usual: not at all 9. Thoughts that you would be better off or of hurting yourself in some way: not at all Total score: 2 Depression Screening Interpretation: Negative Depression Screening Done: Yes Source: Developed by Drs. Nir Coon, Cinthia Goodman, Thuan Bello and colleagues, with an educational laure from [employer]. Thrive Questionnaire Date Thrive assessed: 11/20/24 I am a: Patient What is your living situation today?: I have a steady place to live Within the past 12 months, did the food you bought not last and you didn't have the money to get more?: Never true Within the past 12 months, did you worry whether your food would run out before you got money to buy more?: Never true Do you have trouble paying for medicines?: No Do you have trouble getting transportation to medical appointments?: No Do you have trouble paying your heating and electricity bill?: No Do you have trouble taking care of your child, family member or friend?: No Do you have trouble with day-to-day activities such as bathing, preparing meals, shopping, managing finances, etc.?: No Are you currently unemployed and looking for a job?: No Are you interested in more education?: Yes Please select the resources that you would like help with: None Currently or been in a relationship where the following occur: No concerns reported THRIVE Score: 0 AUDIT C Alcohol Use Questionnaire (AUDIT-C) 1. How often do you have a drink containing alcohol?: Never Total Score: 0 DINESH-7 AMB Questionnaire DINESH-7 Date DINESH - 7 assessed: 11/20/24 Feeling nervous, anxious, or on edge: 1 = Several days Not being able to stop or control worryin = Several days Worrying too much about different things: 1 = Several days Trouble relaxin = Several days Being so restless that it is hard to sit still: 1 = Several days Becoming easily annoyed or irritable: 0 = Not at all Feeling afraid as if something awful might happen: 1 = Several days Total DINESH-7 score (0-4 normal; 5-9 mild; 10-14 moderate; 15-21 severe): 6 Source: Developed by Drs. Nir Coon, Cinthia Goodman, Thuan Bello and colleagues, with an educational laure from [employer]. Review of Systems Const Denies body aches, Denies chills, Denies fever(s) and Denies poor appetite Eyes Reports no additional complaints ENT Denies dysphagia, Denies dizziness and Denies odynophagia Card Denies chest pain, Denies lightheadedness and Denies dyspnea Resp Denies cough and Denies dyspnea GI Denies abdominal pain, Denies dysphagia, Denies nausea, Denies odynophagia and Denies vomiting Reports no additional complaints Musc Reports no additional complaints and Denies abnormal gait Skin/Breast Reports system reviewed and no additional complaints, except as documented Neuro Denies abnormal gait and Denies dizziness Psych Reports no additional complaints Physical exam (Primary Care) Vital Signs: Last Vital Signs Temp 97.3 F 02/28/25 09:00 Pulse 78 02/28/25 09:00 BP 110/70 02/28/25 09:00 Pulse Ox 98 02/28/25 09:00 Oxygen Delivery Method Room Air 02/28/25 09:00 Tobacco/Smoking Status: Tobacco use Status Tobacco use date assessed 11/20/24 02/28/25 09:07 Patient Tobacco Use Status Never used Tobacco 02/28/25 09:07 e-Cigarette/Vaping Use Never Used 02/28/25 09:07 PHQ-9: PHQ-9 Score PHQ-9: Total score 2 02/28/25 09:29 Depression Screening Interpretation: Negative Thrive Assessment: Date of Thrive Assessment Date Thrive assessed 11/20/24 02/28/25 09:07 Currently or been in a relationship where the following occur: No concerns reported Const General: cooperative, healthy appearing, comfortable and no acute distress Orientation/consciousness: patient oriented x3 HENMT Head: Yes normocephalic Ears: hearing grossly normal bilaterally General nose exam: Normal external nose present Mouth: oropharynx normal Throat: Yes posterior oropharynx normal Eyes General: appearance normal, both eyes and all related structures Conjunctivae: conjunctivae normal Neck Neck: Yes full ROM and Yes no lymphadenopathy Resp Effort & Inspection: normal respiratory effort Auscultation: clear to auscultation bilaterally, no crackles, no rales, no rhonchi and no wheezes Cardio Rate: regular rate Rhythm: regular rhythm Skin General skin exam: no rashes or lesions noted Neuro General: patient oriented x3 Gait exam (Neuro): Normal gait present Extrem General: Yes normal to inspection, Yes full ROM and No edema Psych Affect: normal affect Attitude: cooperative Insight: Good insight present (Psych) Judgement: Good judgement present (Psych) Results AMB Hemoglobin A1c AMB Hemoglobin A1c 8.1 % Last Edit by Priscilla Tate MA on 02/28/25 09:32 Results Reviewed Results Reviewed: Laboratory Last Values Hgb A1c (Clinic) 8.1 % (4.0-6.0) H 02/28/25 09:23 Coding Level of Care Code Est Pt Level 4 (35523) Diagnoses Obesity (BMI 30.0-34.9) E66.811 Primary hypertension I10 Hypertension type: primary hypertension Diabetes mellitus E11.9 Peripheral vascular disease I73.9 Low TSH level R79.89 Hypercholesteremia E78.00 Chest discomfort R07.89 Halitosis R19.6 Assessment & Plan Assessment & Plan (1) Obesity (BMI 30.0-34.9): Code(s): E66.811 - Obesity, class 1 Category: Medical Plan: Healthy diet and regular exercise is encouraged. (2) Hypertension: Code(s): I10 - Essential (primary) hypertension Category: Medical Qualifiers: Hypertension type: primary hypertension Qualified Code(s): I10 - Essential (primary) hypertension Plan: Continue on current blood pressure medication. Avoid salt intake and encourage healthy diet and regular exercise. (3) Diabetes mellitus: Code(s): E11.9 - Type 2 diabetes mellitus without complications Category: Medical Plan: Decrease the amount of carbohydrates such as pasta, bread, rice, and potatoes and limit the amount of sweets. Although fruits are generally healthy they should be eaten in moderation as they are still high in sugar. Hemoglobin A1c goal of less than 7%. A1c in the clinic elevated 8.1% plan to increase Jardiance to 25 mg. Discussed strict dietary changes as well. (4) Peripheral vascular disease: Comment: Dx in DR Code(s): I73.9 - Peripheral vascular disease, unspecified Category: Medical Plan: Continue to follow with vascular for workup. (5) Low TSH level: Code(s): R79.89 - Other specified abnormal findings of blood chemistry Category: Medical Plan: TSH was low and T4 level was normal suggesting subclinical hyperthyroidism. Plan for repeat blood work and consider referral to endocrinology (6) Hypercholesteremia: Code(s): E78.00 - Pure hypercholesterolemia, unspecified Category: Medical Plan: Avoid foods that are high in cholesterol such as red meat, fried foods, eggs and baked goods. Triglyceride goal of less than 150 and LDL goal of less than 100. Patient's ASCVD risk is 2.6% not recommending medication at this time. However I did discuss with the patient the importance of lowering the cholesterol plan to repeat in 3 months. If cholesterol is not improved atorvastatin will be initiated. (7) Chest discomfort: Code(s): R07.89 - Other chest pain Category: Medical Plan: The patient reports a recent episode of chest pain at rest, and a past episode while [place]. A recent EKG was abnormal which could suggest a prior anterior infarct. The EKG finding is noted as subtle but will be monitored. She is hoping to restart on the phentermine however she needs cardiac workup prior to starting this medication. Echocardiogram and stress test were ordered today. (8) Halitosis: Code(s): R19.6 - Halitosis Category: Medical Plan: Patient reporting halitosis and discoloration and saliva. Exam is normal today recommend patient follow up with dentist and reviewed red flag symptoms. Plan This note was constructed using voice recognition software. While every effort has been made to ensure accuracy and office support associate, still areas may have been included sometimes these areas may affect the content or meeting of the given symptoms. Total time spent caring for the patient today was 20 minutes. This includes time spent before the visit reviewing the chart, time spent during the visit, and time spent after the visit and documentation. Patient was informed and verbally consented to the use of an ambient scribe for clinic note documentation during this visit. Orders: Orders AMB Hemoglobin A1c Today Z13.9 - Encounter for screening, unspecified Lipid Panel 3 Months E78.00 - Pure hypercholesterolemia, unspecified Hemoglobin A1c 3 Months E11.65 - Type 2 diabetes mellitus with hyperglycemia TSH reflex Free T4 3 Months R79.89 - Other specified abnormal findings of blood chemistry, Z13.29 - Encounter for screening for other suspected endocrine disorder CA echo transthoracic complete Today R07.89 - Other chest pain CA stress test Today R07.89 - Other chest pain Referrals Ophthalmology Referral E11.9 - Type 2 diabetes mellitus without complications Medications: New empagliflozin (Jardiance) 25 mg PO DAILY 90 tabs 0RF Discontinued empagliflozin (Jardiance) Discontinued Reason: Patient no longer taking 10 mg PO DAILY 90 tabs 0RF
== END 2025-02-28 09:41 | disposition home or self-care (01) ==
LOC: HO.HMCH 08:56
DX: E11.51 Type 2 diabetes mellitus with diabetic peripheral angiopathy without gangrene (principal); I10 Essential (primary) hypertension; I73.9 Peripheral vascular disease, unspecified; R79.89 Other specified abnormal findings of blood chemistry; E66.811 Obesity, class 1; E78.00 Pure hypercholesterolemia, unspecified; R07.89 Other chest pain; R19.6 Halitosis

== ENCOUNTER → 2025-02-28 08:55 | Outpatient (BNVA) | payer OTHER, SELFPAY | DX: E11.51 Type 2 diabetes mellitus with diabetic peripheral angiopathy without gangrene (principal); I10 Essential (primary) hypertension; F41.9 Anxiety disorder, unspecified; E66.811 Obesity, class 1; R79.89 Other specified abnormal findings of blood chemistry; E78.00 Pure hypercholesterolemia, unspecified; R07.89 Other chest pain; R19.5 Other fecal abnormalities | CPT/HCPCS: 83036; 99212 ==

== ENCOUNTER 2025-03-27 14:08 | Outpatient (AMB) | payer OTHER, SELFPAY ==
--- NOTE | 2025-03-27 14:16 | A.OFFVIS_ITS ---
Vital Signs 03/27/25 14:17 Height 5 ft 5 in Intake Visit Reasons: follow up U/S 02/12/25 Intake Note: follow up US 02/12/25 for LE pain. Left LE worse than Right LE. Pt states her legs have not been as bad since last visit. Rayon Tester Required: No Accompanied by: Sister Allergies No Known Allergies Allergy (Verified 03/27/25 14:24) HPI HPI follow up U/S 02/12/25: Details: Very pleasant 50-year-old female presents for follow-up regarding swelling of the lower extremities. She has had swelling for several years and was originally given some medication in [facility]. As she has transferred her care to [facility] she was concerned about this and now presents for follow-up regarding her venous disease. As she has become more active and exercising more she noticed that the swelling has decreased. She now presents for routine follow-up with venous insufficiency testing.. [facility] Surgical History H/O: hemorrhoidectomy H/O section Social History Housing: House Patient Tobacco Use Status: Never used Tobacco e-Cigarette/Vaping Use: Never Used Cognitive needs: No Hearing needs: No Vision needs: Yes Review of Systems Const All systems reviewed & are unremarkable except as noted in HPI and below Reports no additional complaints ENT Reports Normal hearing present Card Denies chest pain, Denies chest pain at rest, Denies chest pain with activity and Denies pedal edema Resp Denies cough GI Denies abdominal pain Musc Denies abnormal gait, Denies muscle cramps and Denies radiating pain into limb Skin/Breast Denies skin ulcer and Denies wounds Neuro Reports Normal hearing present and Denies abnormal gait Psych Reports no additional complaints Physical Exam Const General: cooperative, healthy appearing and comfortable Orientation/consciousness: oriented to person, oriented to place and oriented to time HEENT Head: Yes normal to inspection Neck Neck: Yes normal visual inspection Carotids: no bruits Chest Chest palpation & inspection: normal inspection of the chest Resp Effort & Inspection: normal respiratory effort and able to speak in complete sentences Auscultation: clear to auscultation bilaterally, no crackles, no rales, no rhonchi and no wheezes Cardio Rate: regular rate Rhythm: regular rhythm Heart sounds: S1 normal heart sound present and S2 normal heart sound present Bruits: no carotid bruits Peripheral pulses: Peripheral pulses 2+ throughout GI Inspection: Yes normal to inspection Skin Wounds: no wounds Hair: normal Neuro General: oriented to person, oriented to place and oriented to time Cranial nerves: Yes CN's II-XII intact bilaterally and Yes Normal hearing present Cognition (Neuro): normal cognition Motor exam (neuro): 5/5 motor strength present throughout Extrem Other: venous exam: +1 edema General: No clubbing, No cyanosis and Yes edema Psych Appearance: grossly normal Mental Status: mental status grossly normal Speech and movement: Normal speech and movement present Results Reviewed Results Reviewed: Brief summary of venous insufficiency testing is as follows: right great saphenous vein: Focally positive right mid thigh but vein is small in caliber right small saphenous vein: negative right accessory vein: none present left great saphenous vein: negative left small saphenous vein: negative left accessory vein: none present Please note there is no evidence of any venous aneurysms or significant tortuosity Assessment & Plan Assessment & Plan (1) Varicose veins of left lower extremity with inflammation: Code(s): I83.12 - Varicose veins of left lower extremity with inflammation Category: Medical Plan: In short patient is negative for any significant venous insufficiency. We did discuss routine conservative measures including compression, elevation and exer cise. Patient will follow up with us on an as-needed basis. Thank you for allowing us to assist in her care. If there are any questions or concerns please do not hesitate to contact us. The patient had an opportunity to ask questions regarding the treatment plan. All questions were answered. Imaging studies, laboratory studies and physical exam results were discussed and reviewed in detail. No major barriers to understanding were identified. The patient expressed understanding and agreement with the above treatment plan. The patient is aware they should contact our office by phone for worsening of the current condition or the appearance of new symptoms. Thank you for allowing me to participate in the vascular care of this patient. If you have any questions or concerns regarding the treatment for the above condition please do not hesitate to contact me. The office telephone contact is [phone]. This note is constructed using voice recognition software. While every effort has been made to ensure accuracy, bag machine operator errors may have been included. Thank you for allowing me to participate in the care of your patient. Yours sincerely, Missael Bermudez MD, FACS, R.P.V.I. Coding Level of Care Code Est Pt Level 4 (82433) Diagnoses Varicose veins of left lower extremity with inflammation I83.12
== END 2025-03-27 14:40 | disposition home or self-care (01) ==
LOC: HO.HVS 14:09
PROVIDERS: Visit Provider Surgery Vascular Surgery
DX: I83.12 Varicose veins of left lower extremity with inflammation (principal)
CPT/HCPCS: 99214

== ENCOUNTER → 2025-03-27 14:08 | Outpatient (BNVA) | payer OTHER, SELFPAY | PROVIDERS: Visit Provider Surgery Vascular Surgery | DX: I83.12 Varicose veins of left lower extremity with inflammation (principal) | CPT/HCPCS: 99212 ==

== ENCOUNTER 2025-04-13 12:11 | Emergency (ER) | payer OTHER, SELFPAY ==
[2025-04-13 12:14] VITALS: BP 143/65; PULSE 80; RESP 18; TEMP 36.2; O2SAT 99; BMI 32.2
--- NOTE | 2025-04-13 12:14 | ED.GENADULT ---
HPI - General Adult General Chief complaint: Skin/Abscess/Foreign Body Stated complaint: UNKNOWN FACIAL REACTION Time Seen by Provider: 04/13/25 12:23 Source: patient and family (patient's sister) Mode of arrival: ambulatory Limitations: language barrier (patient declined [facility] interpreter translator - requested to use her sister as her interpreter translator) History of Present Illness ED Provider: Elena Palomino PA-C HPI narrative: Patient is a 50 year old female with a history of anxiety, HTN, DM, and PVD presenting to the emergency department today with a left sided facial rash. Patient declined an [facility] interpreter and translator and stated she would like to use her sister as her interpreter translator. Patient states that she has had a left sided facial rash for the last 4 days. Patient states that it is itchy and nothing makes it worse / nothing makes it better. Patient denies any recent exposure to cats / pets. Patient denies any other complaints at this time. Onset (ago): day(s) Location: face Relieving factors: none Exacerbating factors: none Associated symptoms: rash Treatments prior to arrival: none Related Data Previous Rx's ?Medication ?Instructions ?Recorded blood pressure test kit-large #1 ea 11/20/24 blood-glucose meter (FreeStyle #1 ea 11/20/24 [place] Lite kit) lancets 28 gauge (FreeStyle #100 ea 11/20/24 Lancets) losartan 100 1 tab PO QAM blood pressure 90 11/20/24 mg-hydrochlorothiazide 25 mg tablet days #90 tabs metformin 1,000 mg tablet 1,000 mg PO BID diabetes mellitus 11/20/24 type 2 90 days #180 tabs blood sugar diagnostic (FreeStyle #100 strips 02/17/25 Lite Strips) empagliflozin 25 mg tablet 25 mg PO DAILY #90 tabs 02/28/25 (Jardiance) terbinafine HCl 1 % topical cream 1 appl topical DAILY #30 grams 04/13/25 Allergies Allergy/AdvReac Type Severity Reaction Status Date / Time No Known Allergies Allergy Verified 04/13/25 12:18 Review of Systems Constitutional: Constitutional: Reports as per HPI Eyes: Eyes: Reports as per HPI ENT: Reports as per HPI Cardiovascular: Cardiovascular: Reports as per HPI Respiratory: Respiratory: Reports as per HPI Gastrointestinal: Gastrointestinal: Reports as per HPI Genitourinary: Genitourinary: Reports as per HPI Musculoskeletal: Musculoskeletal: Reports as per HPI Integumentary/Breasts: Skin/Breast: Reports as per HPI Neurologic: Reports as per HPI Psychiatric: Psychiatric: Reports as per HPI Endocrine: Endocrine: Reports as per HPI Hematologic/Lymphatic: Hematologic/Lymphatic: Reports as per HPI Allergic/Immunologic: Allergic/Immunologic: Reports as per HPI [facility] Past Medical History Attestation statement: The following information was validated with the patient. (all information validated with the patient's sister) Source: old records reviewed, obtained from family (patient's sister provided additional history and confirmed the history provided by the patient.) and nursing notes reviewed Surgical History H/O: hemorrhoidectomy H/O section Social History Social History Housing: House Patient Tobacco Use Status: Never used Tobacco e-Cigarette/Vaping Use: Never Used Advance Directives: No Advance Directives Information Provided: Yes Do you have a plan to hurt others: No Plan Cognitive needs: No Hearing needs: No Vision needs: Yes Physical Exam ED Vital Signs: Vital Signs - 24 hr 04/13/25 12:14 04/13/25 12:42 Temperature 97.1 F 97.1 F Pulse Rate 80 80 Respiratory Rate 18 18 Blood Pressure 143/65 H 143/65 H Pulse Oximetry 99 99 Oxygen Delivery Method Room Air Room Air BMI result Body Mass Index 32.2 Const General: cooperative, alert and awake Orientation/consciousness: patient oriented x3 HENMT Other: Head: Yes normal to inspection and Yes atraumatic Ears: hearing grossly normal bilaterally and external ears normal General nose exam: Normal external nose present, no nasal discharge noted and no epistaxis Face and sinus: No abrasion and No laceration Mouth: Normal oral and palatal mucosa present, no drooling and no muffled voice Eyes General: appearance normal, both eyes and all related structures Periorbital: periorbital findings normal Eyelids: Yes eyelids normal Conjunctivae: conjunctivae normal Pupils: Equal, round and reactive pupils present EOM: EOMs intact bilaterally Resp Effort & Inspection: normal respiratory effort and able to speak in complete sentences Neuro General: patient oriented x3, moves all extremities and CN's II-XI intact bilaterally Cranial nerves: Yes Equal, round and reactive pupils present Cognition (Neuro): normal cognition Extrem General: Yes full ROM Psych Appearance: grossly normal Mental Status: mental status grossly normal Attitude: cooperative Medical Decision Making Medical Decision Making MDM Narrative: Patient is a 50 year old female with a history of anxiety, HTN, DM, and PVD presenting to the emergency department today with a left sided facial rash. Patient's physical exam was as noted in the physical exam portion of this note and consistent with ring worm. I explained my physical exam findings to the patient and the patient's sister. I answered all questions asked by the patient and the patient's sister. I stressed the importance of the patient taking her medication as directed (either prescribed or as the over the counter packaging recommends). I stressed the importance of the patient following up with her primary care provider and a release of information clerk. I stressed the importance of the patient returning to the emergency department immediately if her symptoms were to worsen or if she were to develop any dizziness, shortness of breath, difficulty breathing, chest pain, blurry vision, loss of vision, nausea, vomiting, abdominal pain, fever, chills, back pain, or any other complaints. Patient verbalized agreement and understanding with this treatment plan and discharge. Differential Diagnosis Differential Diagnoses: The differential diagnosis associated with the presentation includes Ring worm Tinea Admission/Observation Consideration of admission/observation: Escalation of care including admission/observation considered Patient would have been admitted to the hospital had her clinical presentation warranted hospital admission. Independent Historian Clinical information obtained from an independent historian. History obtained from or confirmed by: Other (patient's sister provided additional history and confirmed the history provided by the patient. ) Prescription Management I considered prescription management with: Other (patient prescribed topical anti-fungal cream) Chronic Conditions Patient?s care impacted by: Diabetes Discharge Plan Discharge Clinical Impression: Ringworm, Skin abnormality Patient Disposition: Home, Self-Care Instructions: Skin Yeast Infection (ED) Additional Instructions: Your facial lesion appears to be ring worm. I have prescribed a medication for you to take for this. Apply the cream daily until the area clears up. You must follow up with a release of information clerk. Julian lesi?n facial parece ser kelly ti?a. Le he recetado un medicamento para tratarla. Aplique la crema diariamente hasta que la nikki se cure. Debe acudir a un dermat?logo para un seguimiento. [facility] today [address] IF you are prescribed home medications and/or you are taking over the counter medications at home - it is very important you continue to do so as prescribed / directed unless told otherwise. SI le recetan medicamentos y/o est? tomando medicamentos de venta rip, es muy importante que contin?e haci?ndolo seg?n lo recetado/indicado a menos que le indiquen lo contrario. Follow up with your primary care provider. Return to the emergency department immediately if your symptoms worsen or if you develop any dizziness, shortness of breath, difficulty breathing, chest pain, blurry vision, loss of vision, nausea, vomiting, abdominal pain, fever, chills, back pain, or any other complaints. Benjamin?seguimiento?con julian m?dico de atenci?n primaria. Acuda inmediatamente al servicio de urgencias si fay s?ntomas empeoran o si presenta falta de aliento, dificultad para respirar, dolor tor?cico, mareos, aturdimiento, dolor de espalda, dolor abdominal, fiebre, escalofr?os o cualquier otro s?ntoma. If you do not have a primary care provider - call any of the below numbers to establish and follow up with a primary care provider. Si no tiene un proveedor de atenci?n primaria, llame a cualquiera de los n?meros que aparecen a continuaci?n para establecer y hacer seguimiento con un proveedor de atenci?n primaria. [facility] Primary Care ([place]) [phone] [address] [facility], [address] [facility] Primary Care ([address] [place]) [phone] [place] [address], [address] [facility], [address] [facility] Primary Care ([address] [place]) [phone] [place] [address], [address] [facility], [address] [facility] Primary Care ([place]) [phone] [place] [address] [address] [facility], [address] [facility] Family Medicine [phone] [place] [address], [address] Please see the information below about our Patient Portal. If you are not yet enrolled in the [facility] Patient Portal, you will receive an enrollment email invitation following your visit to any [facility] care setting. You may also self-enroll in the Patient Portal by visiting our website: [email or web address] The following information is required to access the Patient Portal: - Your [facility] Medical Record Number - Your personal home email address (must match what is in your electronic medical record, Registration staff can assist with this) - Name - Date of Capabilities of the Patient Portal: - Message some providers - View upcoming appointments - Access your health summary, medical history, and visit history - View current conditions and allergies - View procedure and lab results - View your medications, including guidelines, side effects, and precautions - Complete pre-appointment questionnaires requested by your provider - Ready summary reports of your office visits and procedures To access the Patient Portal Mobile Darcy, follow these directions: - Search [employer] in the [employer] Store or [employer]alife Store - Download the Darcy - Search for [facility] - Enter your login/password Portal del paciente Si usted no esta inscrito en el portal de pacientes de [facility], recibira kelly invitacion de inscripcion despues de julian visita al [facility] o al [facility] via correo electronico. Tambien puede inscribirse voluntariamente en el portal de pacientes visitando nuestra pagina web: [email or web address] La siguiente informacion sera requerida para acceder al portal: - Julian maritza de historia medica de [facility] - Julian direccion de correo electronico personal - Nombre - Fecha de nacimiento Capacidades: Las siguientes capacidades estan disponibles en el portal de pacientes: - Enviar mensajes a algunos doctores - Verificar proximas citas - Acceso a julian historial de jennifer, registro medico e historial de visitas - Tano las condiciones actuales y alergias tano procedimientos y resultados del laboratorio - Tano fay medicamentos, incluyendo las pautas - Efectos secundarios y precauciones - Completar o llenar formularios / cuestionarios de - Citas solicitadas por julian doctor - Leer los resumenes de reportes medicos de fay visitas y procedimientos Moore acceder a la aplicacion movil: - [employer] en la [employer] Store o [employer] Store - Descargue la aplicacion - [facility] - Ingrese julian nombre de usuario / Contrasena Prescriptions: New terbinafine HCl 1 % cream 1 appl topical DAILY Qty: 30 0RF Rx Instructions: Apply cream once daily to the affected area until it resolves. No Action (DME) FreeStyle Lite Strips Strip See Rx Instructions .ROUTE .COMPLEX Qty: 100 0RF Dose Instruction: DIRECTED TO CHECK BLOOD SUGAR DAILY Rx Instructions: DIRECTED TO CHECK BLOOD SUGAR DAILY losartan-hydrochlorothiazide 100-25 mg tablet 1 tab PO QAM 90 Days Qty: 90 1RF metformin 1,000 mg tablet 1,000 mg PO BID 90 Days Qty: 180 1RF (DME) blood-glucose meter [FreeStyle [place] Lite] Kit See Rx Instructions .Route Qty: 1 0RF Rx Instructions: As directed to check blood sugar daily (DME) blood pressure test kit-large Kit See Rx Instructions .Route Qty: 1 0RF Rx Instructions: As directed; to check blood pressure (DME) lancets [FreeStyle Lancets] 28 gauge misc See Rx Instructions .Route Qty: 100 0RF Rx Instructions: As directed to check blood sugar daily Jardiance 25 mg tablet 25 mg PO DAILY Qty: 90 0RF Interventions: ED Discharge Assessment Last Done: 04/13/25 12:42 Discharge Date/Time: 04/13/25 12:42 Print Language: Vietnamese
[2025-04-13 12:42] VITALS: BP 143/65; PULSE 80; RESP 18; TEMP 36.2; O2SAT 99
== END 2025-04-13 12:42 | disposition home or self-care (01) ==
PROVIDERS: Emergency Provider Emergency Medicine
DX: B35.8 Other dermatophytoses (principal); I10 Essential (primary) hypertension; Z79.899 Other long term (current) drug therapy
CPT/HCPCS: 99282; 99283